=== PATIENT | male | born 1980 | race African-American/Black ===

== ENCOUNTER 2020-11-24 13:26 | Emergency (ER) | payer BC, OTHER ==
[2020-11-24 14:25] VITALS: BP 123/77; PULSE 95; TEMP 101.4; BMI 28.1
[2020-11-24] MEDS ORDERED: CASIRIVIMAB/IMDEVIMAB 10 ML in SODIUM CHLORIDE 100 ML IVPB ONE (14:57)
[2020-11-24] MEDS ORDERED: ACETAMINOPHEN 500 MG TABLET (FP) PO ONE (14:58)
[2020-11-24] MEDS ORDERED: ACETAMINOPHEN 500 MG TABLET (FP) ONE (16:03)
[2020-11-24 17:33] LABS: BASO % 0.5 % (0-2.0); HEMATOCRIT 43.1 % (35.4-49); HEMOGLOBIN 14.1 GM/dL (11.7-16.9); LYMPH % 20.9 % (8-40); MCH 27.8 pg (25.7-33.7); MCHC 32.6 g/dl (32.0-35.9); MEAN CELL VOLUME 85.2 fl (80-96); MEAN PLT VOLUME 8.8 fl (7.5-11.1); MONO % 9.6 % (3.8-10.2); PLATELET COUNT 203 10^3/uL (134-434); RBC 5.06 M/mm3 (4.00-5.60); RDW 12.8 % (11.9-15.9); WHITE BLOOD COUNT 5.1 K/mm3 (4.0-10.0)
[2020-11-24 17:56] LABS: BLOOD UREA NITROGEN 13.9 mg/dL (7-18); CALCIUM 8.6 mg/dL (8.5-10.1)
[2020-11-24 17:59] LABS: CREATININE 1.1 mg/dL (0.55-1.3)
== END 2020-11-24 18:00 | disposition home or self-care (01) ==
LOC: JER 13:26
PROC: 3E033GC Introduction of Other Therapeutic Substance into Peripheral Vein, Percutaneous Approach (ICD-10-PCS; principal; 2020-11-24)
DX: U07.1 COVID-19 (principal)
CPT/HCPCS: 36415; 80048; 85025; 99284-25; Q0240